=== PATIENT | female | born 1985 | race Caucasian/White ===

== ENCOUNTER 2020-09-14 08:08 | Day surgery (SDCO) | payer OTHER ==
[~2020-09-14 08:08] MED LIST: EMGALITY S300 MG/3 M SC; KLONOPIN2 MG PO; ZOLOFT50 M1 PO; ZONEGRAN100 MG PO
[2020-09-14 08:32] LABS: HCG (URINE) SCREEN NEGATIVE (NEGATIVE)
[2020-09-14 09:09] LABS: EOSINOPHIL 2.2 % (0-5); HCT 31.8 % (37.0-47.0); HGB 10.9 g/dl (12.5-16.0); LYMPHOCYTE 26.6 % (15-48); MCH 29.4 pg (25.0-31.0); MCHC 34.3 g/dL (32.0-36.0); MCV 85.7 fL (78.0-100.0); MONOCYTE 7.4 % (0-12); MPV 12.1 fL (6.0-9.5); NEUTROPHIL 62.6 % (41-80); NRBC 0; PLT 247 K/uL (150-400); RBC 3.71 M/uL (4.20-5.40); RDW 13.8 % (11.5-14.0); WBC 5.9 K/uL (4.0-10.5)
[2020-09-15 06:23] LABS: BASOPHIL 0.2 % (0-2); EOSINOPHIL 0.5 % (0-5); HGB 9.5 g/dl (12.5-16.0); LYMPHOCYTE 23.4 % (15-48); MCH 29.4 pg (25.0-31.0); MCHC 33.9 g/dL (32.0-36.0); MCV 86.7 fL (78.0-100.0); MONOCYTE 7.5 % (0-12); MPV 11.9 fL (6.0-9.5); NEUTROPHIL 68.2 % (41-80); NRBC 0; PLT 224 K/uL (150-400); RBC 3.23 M/uL (4.20-5.40); RDW 13.8 % (11.5-14.0); WBC 8.7 K/uL (4.0-10.5)
[2020-09-15] MEDS ORDERED: MOTRIN600 MG PO (12:20)
[2020-09-15] MEDS ORDERED: ONDANSETRON ODT4 MG PO (12:20)
[2020-09-15] MEDS ORDERED: COLACE100 MG PO (12:20)
[2020-09-15] MEDS ORDERED: PERCOCET 5-3251 EACH PO (12:20)
[2020-09-15] MEDS ORDERED: FEOSOL325 MG PO (12:20)
== END 2020-09-15 16:05 | disposition home or self-care (01) ==
LOC: FSDC 08:08 → FMS 12:00
PROVIDERS: ADMIT Obstetrics & Gynecology
DX: N80.0 Endometriosis of uterus (principal); N72 Inflammatory disease of cervix uteri; Z91.040 Latex allergy status; D64.9 Anemia, unspecified; R00.1 Bradycardia, unspecified
CPT/HCPCS: 36415; 84703; 85025; 86850; 86900; 86901; 93005; G0378; J0690; J1100; J1170; J1885; J2250; J2270; J2405; J2704; J2710; J2765; J2916; J3010; J7120; J7121

== ENCOUNTER 2021-01-17 20:12 | Emergency (ER) | payer OTHER ==
[~2021-01-17 20:12] MED LIST changes: +COLACE100 MG PO; +FEOSOL325 MG PO; +MOTRIN600 MG PO; +ONDANSETRON ODT4 MG PO; +PERCOCET 5-3251 EACH PO
[2021-01-17 21:21] LABS: BASOPHIL 0.7 % (0-2); EOSINOPHIL 1.4 % (0-5); HCT 35.3 % (37.0-47.0); HGB 12.1 g/dl (12.5-16.0); LYMPHOCYTE 33.2 % (15-48); MCH 29.7 pg (25.0-31.0); MCHC 34.3 g/dL (32.0-36.0); MCV 86.7 fL (78.0-100.0); MONOCYTE 6.5 % (0-12); MPV 12.9 fL (6.0-9.5); NEUTROPHIL 58.1 % (41-80); NRBC 0; PLT 249 K/uL (150-400); RBC 4.07 M/uL (4.20-5.40); RDW 12.8 % (11.5-14.0); WBC 8.5 K/uL (4.0-10.5)
[2021-01-17 21:43] LABS: BUN/CREAT RATIO (CALC) 17.6 RATIO; CREATININE 0.74 mg/dL (0.51-0.95); POTASSIUM 3.5 mmol/L (3.5-5.1)
[2021-01-17 22:19] LABS: CORONAVIRUS 2019 SARS-COV-2 NEGATIVE (NEGATIVE); INFLUENZA A NAA NEGATIVE (NEGATIVE)
[2021-01-17 22:23] LABS: BILIRUBIN NEGATIVE (NEGATIVE); BLOOD NEGATIVE Ery/uL (NEGATIVE); CLARITY CLEAR (CLEAR); COLOR YELLOW (YELLOW); GLUCOSE (U) NORMAL (NORMAL); LEUKOCYTES 1+ Leu/uL (NEGATIVE); NITRITE NEGATIVE (NEGATIVE); PROTEIN NEGATIVE (NEGATIVE); SPECIFIC GRAVITY 1.015 (1.001-1.030); UROBILINOGEN 0.2 mg/dL (0.2-1.0)
[2021-01-17 22:29] LABS: AMORPHOUS URATES CRYSTALS TRACE; BACTERIA 1+
[2021-01-17] MEDS ORDERED: ONDANSETRON ODT4 MG PO (23:02)
[2021-01-17] MEDS ORDERED: BACTRIM DS TAB1 EACH PO (23:03)
== END 2021-01-18 00:02 | disposition home or self-care (01) ==
LOC: FER 20:12
PROVIDERS: Internal Medicine
DX: B34.9 Viral infection, unspecified (principal); N39.0 Urinary tract infection, site not specified; D64.9 Anemia, unspecified; Z20.822 Contact with and (suspected) exposure to COVID-19
CPT/HCPCS: 36415; 71275; 80048; 81001; 83690; 84145; 84443; 84484; 85025; 87088; 93005; Q9967; U0002